=== PATIENT | male | born 1975 | race Caucasian/White ===

== ENCOUNTER 2023-07-27 18:26 | Emergency (ER) | payer OTHER, SELFPAY ==
[2023-07-27 18:27] VITALS: BP 154/90; PULSE 86; RESP 18; TEMP 36; O2SAT 100; BMI 31.9
[2023-07-27 19:41] LABS: Bacteria 0 SEEN /hpf (None Seen); Mucous, Urine 0 SEEN /hpf (<or=2+); Squamous Epithelial Cells - UA 0 SEEN /hpf (0-5)
[2023-07-27 19:42] LABS: Color, Urine Yellow (Yellow); Glucose, Dipstick Normal (Normal); Ketone-Dipstick Negative (Negative); Leukocyte Esterase-Dipstick 25 /ul (Negative); Nitrite-Dipstick Negative (Negative); Occult Blood-Urine Negative /ul (Negative); Protein-Dipstick 15 mg/dl (Negative); Specific Gravity, Urine 1.015 (1.002-1.030); Urine Bilirubin Dipstick Negative (Negative); Urine Clarity Clear (Clear); Urine Urobilinogen Normal (Normal); Urine pH 6.5 (5.0 - 8.0)
[2023-07-27 20:11] LABS: Red Blood Cells-Urine 0-5 SEEN /hpf (0-5); White Blood Cells 0-5 SEEN /hpf (0-5)
--- NOTE | 2023-07-27 20:14 | CT_ITS ---
STUDY: CT ABDOMEN AND PELVIS WITHOUT CONTRAST REASON FOR EXAM: Male, 48 years old. left flank pain RADIATION DOSAGE (If Supplied By Facility): CTDIvol = ( 13.02 ) mGy, DLP = ( 757.96 ) mGycm TECHNIQUE: Transaxial images were obtained from the dome of the diaphragm to the symphysis pubis without oral contrast, and without intravenous contrast. Sagittal and coronal images were reconstructed. Individualized dose optimization techniques were used for this CT. COMPARISON: None. FINDINGS: The visualized lung bases are unremarkable. The visualized portions of the heart are within normal limits. Normal liver. Normal gallbladder and extrahepatic biliary system. Normal spleen. Normal pancreas. Normal bilateral adrenal glands. Normal right kidney. There is mild fullness of the left renal collecting system with no significant ureteral dilatation and no stone along the trajectory of the left ureter, findings most likely secondary to a recently passed stone. Normal visualized stomach. Borderline mild thickening of the wall throughout several small bowel loops, cannot exclude mild enteritis. Normal colon. The appendix is visualized and appears normal. Normal abdominal aorta. Normal inferior vena cava. Normal retroperitoneum. Normal urinary bladder. Tiny fat-containing umbilical hernia. Multilevel endplate spondylosis with narrowing of disc height consistent with disc degenerative disease. Question varicosities along the scrotal region, cannot exclude varicocele. CT/Abdomen/Pelvis without Cont IMPRESSION: Mild fullness of the left renal collecting system with no stone along the trajectory of the left ureter and no hydroureter, findings most compatible with a recently passed stone. No acute appendicitis or bowel obstruction. Cannot exclude mild enteritis. Electronically Signed: Georgia Holman MD at 21:30 EST ,
[2023-07-27] MEDS: morphine 8 MG/ML Syringe 6 MG IV (20:27)
[2023-07-27] MEDS: Ondansetron 4 MG/2 ML Vial IV (20:28)
[2023-07-27 20:40] LABS: Absolute Lymphocyte Count 1.53 X10^3/uL (0.83-4.51); Absolute Neutrophil Count 4.6 X10^3/uL (2.0-7.7); Basophil# 0.04 X10^3/uL; Basophil% 0.6 % (0-1); Eosinophil# 0.08 X10^3/uL; Eosinophils% 1.2 % (0-5); Hematocrit 44.8 % (40-54); Hemoglobin 15.7 g/dL (13.0-16.5); Lymphocyte # 1.53 X10^3/ul (0.83-4.51); Lymphocyte % 22.5 % (19-41); Mean Corpuscular Hgb 29.6 pg (27.0-32.0); Mean Corpuscular Volume 84.5 fL (80-94); Mean Platelet Vol. 8.3 fl (6.2-12.0); Monocyte# 0.52 X10^3/uL; Monocyte% 7.6 % (0-10); NRBC Flagged by Analyzer 0 % (0-5); Neutrophil # 4.61 X10^3/uL (2.7-7.7); Neutrophil % 67.8 % (47-70); Platelet Count 246 K/mm3 (150-450); RBC Distribution Width CV 11.9 % (11.6-14.6); RBC Distribution Width SD 36.2 fl (35.1-43.9); White Blood Count 6.8 K/mm3 (4.4-11.0)
[2023-07-27 20:56] LABS: Anion Gap 4 (5-15); BUN 14 mg/dL (7-18); BUN/Creat Ratio 9.9 RATIO (10-20); Calcium,Total 8.6 mg/dL (8.5-10.1); Chloride 104 mmol/L (98-107); Creatinine, Serum 1.41 mg/dL (0.70-1.30); EST Glomerular Filtration Rate 57 mL/min (>60); Est Glom Filt Rate - Afr Amer 69 mL/min (>60); Estimated Creatinine Clearance 73.19 ml/min; Glucose 112 mg/dL (74-106); Potassium 4.1 mmol/L (3.5-5.1); Sodium Level 138 mmol/L (136-145)
[2023-07-27] MEDS: 0.9% Normal Saline (1000mL) 1,000 ML 100 ML IV (22:38)
[2023-07-27] MEDS: diazePAM 5 MG Tablet PO (22:38)
--- NOTE | 2023-07-27 23:38 | ED.VIS.BACK ---
HPI History of Present Illness Chief Complaint: Flank Pain Informant: patient Narrative Narrative: Patient is a 48-year-old male with no significant past medical history however he does not follow with a family care doctor, presenting for worsening left lower back pain. Patient states that yesterday he was stated about a flutter to up on a ladder when he fell off of it. He landed on his left side. This was in the afternoon. Around midnight (he was at work as he works third shift) he noticed her to get worsening pain in his left flank area. 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 He could not get comfortable. He took Advil around noon and the pain slowly worsens. He states the pain is constant but fluctuates in intensity. Has some mild radiation around to his left lower abdomen but is mostly in his left flank/back area. Denies any urinary symptoms or bowel symptoms. Denies any numbness or tingling. Denies any has had any loss of conscious. No other complaints at this time. Does not take any blood thinners. PFSH PFSH Home Medications diazepam 5 mg tablet (Valium) 5 mg PO TID PRN muscle spasm #15 tabs 07/27/23 [Rx Last Taken Unknown] Allergy/AdvReac Type Severity Reaction Status Date / Time No Known Allergies Allergy Verified 07/27/23 18:29 Social History Smoking Status: Never smoker ROS ROS ED Constitutional Constitutional ED: Denies chills or fever(s) Eyes Eyes: Denies change in vision Cardiovascular Cardiovascular: Denies chest pain Respiratory/Chest Respiratory/Chest: Denies dyspnea Gastrointestinal Gastrointestinal: Reports abdominal pain and nausea; Denies constipation, diarrhea or vomiting Genitourinary Genitourinary ED: Denies dysuria or hematuria Musculoskeletal Musculoskeletal: Reports back pain and myalgias; Denies arthralgias or neck pain Integumentary Denies rash Neurologic Neurologic: Denies headache(s), paresthesias or weakness Psychiatric Psychiatric: Denies anxiety or depression Hematologic/Lymphatic Hematologic/Lymphatic: Denies easy bleeding or easy bruising EXAM Physical Exam Const Vital Signs: 07/27/23 18:27 Temperature 96.8 F L Temperature Source Temporal Pulse Rate 86 Respiratory Rate 18 Blood Pressure 154/90 H Blood Pressure Mean 111 Pulse Ox 100 Oxygen Delivery Method Room Air Positive well nourished and well developed Constitutional Narrative: Uncomfortable appearing General Appearance ED: well developed and NAD HEENT Reports moist mucous membranes Eyes PERRL and EOMs intact bilaterally Neck supple Resp normal respiratory effort and clear to auscultation bilaterally Cardio regular rate and regular rhythm GI normal to inspection, nondistended, normoactive bowel sounds, soft to palpation and non-tender Back/Spine Back/Spine Narrative: No midline tenderness. Mild left paraspinal tenderness to palpation. No significant CVA tenderness however the pain is not easily reproduced with palpation. Cervical Spine: Negative for cervical spine tenderness Extremity normal to inspection General Extremety ED: Negative for edema General Extremity: Negative for edema Neuro oriented x3 and no sensory deficits noted Sensorium / Orientation: alert Motor Exam: strength 5/5 throughout Psych mental status grossly normal Skin no rashes or lesions noted and no wounds MDM MDM MDM Narrative Medical decision making narrative: Patient is evaluated for low back pain after falling off a ladder. He is quite uncomfortable. Vital signs significant for mild hypertension of 154/90. Urinalysis obtained shows 0-5 red blood cells as well as 0-5 white blood cells. Patient is given IV morphine and Zofran for symptom control initially in the ER. He does not have improvement of his pain with the morphine. He states he did not like the way it made him feel either. Differential includes muscle skeletal pain, renal colic, traumatic injury such as splenic laceration or renal laceration. Low suspicion for any spinal injury as he does not have midline tenderness. Patient is then given oral Valium and IV fluids as his creatinine is 1.41. I do not have a baseline to compare to so not sure if this is his baseline or acute. He notes he has not really had much to drink today. CT flank study noncontrast does not show any acute traumatic injury however there is noted mild fullness of the left renal collecting system with no strong findings most compatible with a recently passed stone. Patient is still in more pain than I would expect if he passed a stone. He is informed of these findings. On repeat evaluation he is resting more comfortably. His pain worsened when he used ice on his back. This is more suggestive of a muscle spasm associated with his fall. Patient will be prescribed a course of Valium and given a Lidoderm patch prior to discharge. Counseled on need for outpatient follow-up. He verbalizes understanding of this. Given a work note for the next 2 days as well. Discussed using heat, gentle stretching and taking it easy. Discharged home in stable condition. Lab Data Attestation: I reviewed the patient's lab results. Labs: Laboratory Results - last 24 hr 07/27/23 07/27/23 19:38 20:29 WBC 6.8 RBC 5.30 Hgb 15.7 Hct 44.8 MCV 84.5 MCH 29.6 MCHC 35.0 RDW Std Deviation 36.2 RDW Coeff of Cinthia 11.9 Plt Count 246 MPV 8.3 Immature Gran % (Auto) 0.300 Neut % (Auto) 67.8 Lymph % (Auto) 22.5 Giles % (Auto) 7.6 Eos % (Auto) 1.2 Baso % (Auto) 0.6 Absolute Neuts (auto) 4.6 Absolute Lymphs (auto) 1.53 Nucleated RBC % 0 Sodium 138 Potassium 4.1 Chloride 104 Carbon Dioxide 30.0 Anion Gap 4 L BUN 14 Creatinine 1.41 H Estim Creat Clear Calc 73.19 Est GFR (MDRD) Af Amer 69 Est GFR (MDRD) Non-Af 57 L BUN/Creatinine Ratio 9.9 L Glucose 112 H Calcium 8.6 Urine Color Yellow Urine Clarity Clear Urine pH 6.5 Ur Specific Goodwin 1.015 Urine Protein 15 H Urine Glucose (UA) Normal Urine Ketones Negative Urine Occult Blood Negative Urine Nitrite Negative Urine Bilirubin Negative Urine Urobilinogen Normal Ur Leukocyte Esterase 25 H Urine RBC 0-5 SEEN Urine WBC 0-5 SEEN Ur Squamous Epith Cells 0 SEEN Urine Bacteria 0 SEEN Urine Mucus 0 SEEN Radiography Diagnostic Testing: Clinical Impression(s) from Imaging Studies Abdomen/Pelvis CT 07/27/23 20:14 IMPRESSION: Mild fullness of the left renal collecting system with no stone along the trajectory of the left ureter and no hydroureter, findings most compatible with a recently passed stone. No acute appendicitis or bowel obstruction. Cannot exclude mild enteritis. Electronically Signed: Georgia Holman MD at 21:30 EST , Discharge Plan Triage Chief Complaint: Flank Pain Other Complaint: Back ED Provider: Sherita Wilson Dx/Rx/DC Orders Clinical Impression: Pain in left lumbar region of back, Elevated serum creatinine Instructions: ED Back Sprain/Strain Prescriptions: New diazepam [Valium] 5 mg tablet 5 mg PO TID PRN (Reason: muscle spasm) Qty: 15 0RF Primary Care Provider: Care Physician,No Primary Referrals: Sylvia Valentine MD [Med Staff - Back End Architect] - As soon as possible Care Physician,No Primary [Primary Care Provider] - Activity Restrictions/Additional Instructions: Your imaging work did not show any signs of major trauma. Your kidney function was mildly elevated with a creatinine of 1.41. This is to be followed up. He also had some mild nonspecific dilation of the left collecting system for your kidney. Again this is be followed up outpatient. Please follow-up with the family doctor for this. Try to avoid anti-inflammatory such as ibuprofen and Aleve. Take Tylenol as needed. Use heating pads, [id number] Lidoderm patches (4% extra strength) Disposition Disposition: Home, Self Care
[2023-07-28] MEDS: Lidocaine 5% Patch 1 PATCH TOPICAL (00:20)
[2023-07-28 00:28] VITALS: BP 149/88; PULSE 89; RESP 17; O2SAT 98
== END 2023-07-28 01:07 | disposition home or self-care (01) ==
PROVIDERS: Emergency Provider Emergency Medicine; Visit Provider Emergency Medicine
DX: M54.50 Low back pain, unspecified (principal); R10.9 Unspecified abdominal pain; R79.89 Other specified abnormal findings of blood chemistry; I10 Essential (primary) hypertension
CPT/HCPCS: 74176; 80048; 81001; 85025; 96361; 96374; 96375; 99284; J7030; A4216; J2405

== ENCOUNTER → 2023-08-11 | Outpatient (CLI) | payer OTHER, SELFPAY ==
--- NOTE | 2023-08-11 11:56 | MRI_ITS ---
EXAM: MR LUMBAR SPINE WITHOUT INTRAVENOUS CONTRAST CLINICAL INDICATION: pain, LT LEG RADICULOPATHY, FELL X2WKS AGO CT DONE THROUGH ER PLEASE COMPARE TECHNIQUE: Multiplanar and multisequence MR images of the lumbar spine without intravenous contrast. COMPARISON: No relevant prior studies available. FINDINGS: VERTEBRAE: Mild multilevel endplate deformities of the vertebral bodies without significant loss of vertebral body height. Partial loss of lumbar lordosis. No bone marrow edema. SPINAL CORD: Normal conus medullaris and cauda equina. SOFT TISSUES: Normal. DISCS/SPINAL CANAL/NEURAL FORAMINA: L1-L2: Moderate disc space narrowing left central disc protrusion and ligamentous hypertrophy without significant compression of the thecal sac mild narrowing of the left neural foramen. L2-L3: Moderate disc space narrowing right central disc protrusion and ligamentous hypertrophy causes minimal impression on the thecal sac mild narrowing of the right neural foramen. L3-L4: Moderate disc space narrowing right posterior lateral disc protrusion and ligamentous hypertrophy results in mild spinal stenosis and mild to moderate narrowing of the right neural foramen. L4-L5: Mild disc space narrowing mild disc bulging, ligamentous hypertrophy and facet arthropathy results in moderate narrowing of the neural foramina but no significant spinal compression. L5-S1: Moderate disc space narrowing with Modic type II endplate changes mild retrolisthesis of L5 on S1 without impingement on the spinal canal. Moderate left and mild right neural foraminal narrowing related to facet arthropathy and vertebral body hypertrophy. MRI/Spine Lumbar (Routine) IMPRESSION: Multilevel disc degeneration without significant spinal stenosis. Neural foraminal stenoses as described. Electronically Signed: Vinnie Bernstein MD at 12:41 EST ,
--- NOTE | 2023-08-11 12:00 | RAD_ITS ---
STUDY: X-RAY - ORBITS REASON FOR EXAM: Male, 48 years old. History of metal in eye. Evaluate for MRI study. TECHNIQUE: 2 frontal view(s) of the orbits were obtained. COMPARISON: None. FINDINGS: Normal bilateral orbits without a metallic orbital foreign body. Normal visualized facial bones. Normal paranasal sinuses. The soft tissue structures are unremarkable. RAD/Orbits for Foreign Body IMPRESSION: No demonstrated metallic orbital foreign body. The patient is cleared for an MRI examination. Electronically Signed: Patrice Merida MD at 12:40 EST ,
== END | disposition home or self-care (01) ==
PROVIDERS: Referring Provider Orthopaedic Surgery; Visit Provider Orthopaedic Surgery
DX: M51.26 Other intervertebral disc displacement, lumbar region (principal); M53.3 Sacrococcygeal disorders, not elsewhere classified
CPT/HCPCS: 70030; 72148

== ENCOUNTER → 2023-08-17 | Outpatient (CLI) | payer OTHER, SELFPAY | END | disposition home or self-care (01) | LOC: LABSPEC 15:36 | PROVIDERS: Referring Provider Surgery; Visit Provider Surgery | DX: K46.9 Unspecified abdominal hernia without obstruction or gangrene (principal) | CPT/HCPCS: 87081 ==

== ENCOUNTER 2023-10-25 08:55 | Day surgery (SDC) | payer OTHER, SELFPAY ==
[2023-10-25] VITALS (7 sets, daily range): BP systolic 125–160; BP diastolic 66–104; PULSE 63–72; RESP 12–20; TEMP 36.3–36.7; O2SAT 96–100; BMI 31.1
[2023-10-25] MEDS: Lactated Ringers 1,000 ML 15 ML IV (09:26)
--- NOTE | 2023-10-25 10:45 | PCM.HP.BLA ---
History and Physical Date of Admission: 10/25/23 Date of Service: 10/08/23 MR#: [id number] Acct: [id number] Name: JEANNIE CALLE Rep #: [id number] : 1975 Provider: Dr. Venancio Nieves MD Age/Sex: 48/M Location: [facility] Status: Signed Intake Vital Signs 08/17/2310:33 10/08/2407:52 Height 6 ft 1 in 6 ft 1 in Weight: 223 lb 231 lb 8 oz BMI 29.4 30.5 BP 128/91 H 146/86 H Blood Pressure Location Rt brachial Rt brachial Position Sitting Sitting Respiration 17 17 Pulse 86 90 Pulse Source Monitor Monitor Temp 97.3 F L 97.9 F Temp Source Temporal Temporal Pulse Oximetry (%) 99 97 Oxygen Delivery Method room air room air Intake Visit Reasons: UPDATE H&P Chief Complaint: update H&P Facial Operator Required: No Is patient in pain?: No Allergies No Known Allergies Allergy (Verified 10/08/23 08:53) Medications diazepam 5 mg tablet (Valium) 5 mg PO TID PRN muscle spasm #15 tabs 07/27/23 [Rx Confirmed 10/08/23] PFSH Social History (Updated 10/08/23 @ 08:52 by Corina Casanova LPN) Smoking Status: Never smoker alcohol intake: current alcohol intake frequency: holidays/special occasions only substance use type: does not use HPI HPI HPI: Patient returns for discussions around left inguinal hernia and repair of incidental discovery on umbilical hernia. His last visit was 08/17/2023. He states since that time he has been good . He goes beyond this to state that his hernia issues have been pretty quiet . He notes some periodic numbness of his leg down to the knee to which I have shared I am not certain this is related to his hernia and he quickly acknowledges that he has been told his back is in pretty rough shape. He shares that he has received appropriate clearance through his employer at [employer] for a postoperative recovery. Below is recapitulated from patient's prior visit for ease of review: Patient is a 48-year-old male who presents for complaint of new left lower quadrant abdominal pain. He is referred from Dr. Elijah Gamez of orthopedic surgery. This finding was first noticed by patient after he fell off of a ladder on 07/26/2023. He states that he was immediately taken to the emergency department where he was evaluated with CT imaging that primarily involved evaluation of his back as this was the area of greatest symptomatic difficulty, initially. However, in the time since his initial injury the back pain has subsided but he has experienced persistent discomfort in the left groin. He describes this pain as radiating through to his back as well as presenting with some associated left leg skin pain . He suggest that overall his symptoms have gotten better but he still must walk around stiffly. He has noticed an associated bulge on the left side?particularly immediately after his injury. His adds at this time that Mr. Sanchez was constipated for 6 days after his injury and this may have factored into the bulging. Mr. Sanchez confirms that his bowel movements are now normal. He denies any prior issues at this site. 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 Despite this activity he declares that lifting does not seem to exacerbate the situation (but shares that when he lies on his stomach this does make things worse). Patient has a remote personal history of smoking (last smoking was over 30 years ago). Patient has no personal history of recurrent cutaneous infections including staph. Pertinent surgical history includes: None ROS General General: No weight change, appetite, fatigue, colon cancer, breast cancer or weakness HEENT HEENT: No difficulty swallowing, eye injury, eye surgery, swollen glands or hoarseness Endo Endocrine: No thyroid disease, diabetes mellitus, thyroid cancer, Hair loss, heat intolerance or cold intolerance Skin Skin: No rash or changing moles Musc Musculoskeletal: Yes back problems and arthritis; No rheumatoid arthritis, gout or joint pain Cardio Cardiovascular: No murmur, pacemaker, heart disease, atrial fibrillation, high blood pressure, heart attack, heart stent, palpitations, shortness of breat with exertion or chest pain Psych Psychiatric: No depression, anxiety or hearing voices Resp Respiratory: No shortness of breath, No sleep apnea, No cough, No COPD, No asthma, No emphysema and No wheezing Gastro Gastrointestinal: Yes abdominal pain, No nausea or vomiting, No diarrhea, No constipation, No blood in stool, No acid reflux, No hemorrhoids, No ulcers, No gallbladder problem and No black,tarry stools Kuldip Hematologic: No blood thinners, No blood disorders, No bleeding, No anemia and No blood clots Neuro Neurologic: No system reviewed and no additional complaints, except as documented, No as per HPI, No abnormal gait, No abnormal hearing, No abnormal movements, No abnormal speech, No behavioral changes, No burning sensations, No confusion, No convulsions, No disequilibrium, No dizziness, No localized weakness, No frequent falls, No headache(s), No lack of coordination, No loss of vision, No memory loss, No numbness, No other visual disturbances, No radicular pain, No restless legs, No sensory deficit, No syncope, No tingling, No tremor(s), No weakness and No other Exam Const General: cooperative, healthy appearing and comfortable Orientation: alert, awake and oriented x3 Resp Effort & Inspection: normal respiratory effort Other: Persistent tenderness of the left groin with slight bulge Assessment and Plan Assessment and Plan (1) Left lower quadrant abdominal pain: Status: Acute Comment: Believed to be related to small indirect inguinal hernia (further described below) (2) Left inguinal hernia: Status: Acute Comment: This is a 48-year-old male who presents 1 month out from fall from a ladder which she describes as an inciting event for some left lower quadrant/left groin pain. He is sent for evaluation of possible inguinal hernia, and indeed on exam I palpate what seems to be an indirect inguinal hernia defect. This is small in size but does reproduce patient's discomfort. I have discussed operative repair based on patient's discomfort, but at present I do not believe he is at a significant risk for bowel entrapment. I do believe that at minimum he has a cord lipoma and there does appear to be some irritation of the genitofemoral nerve per his history of skin irritation . This seems evident from independent review of patient's CT imaging from 07/27/2023 and I reviewed this imaging with patient and his spouse during today's consultation. Both open and minimally invasive approaches were discussed, but I recommended ultimately that we consider a minimally invasive approach for the shorter return to activity given patient's active lifestyle. Unfortunately there is some limited operating room availability and patient wishes to return to work before he goes through with the surgery. In this interim time I have recommended he consider a hernia truss belt and he is receptive of this recommendation so a prescription will be written. In the meantime I clarified red flag warning signs that should move him to present for emergent evaluation. Patient and his spouse both expressed understanding of this information. Patient returns today stating that he has had minimal additional discomfort and has secured arrangements through his employer to go through with the surgery and abide by the activity restrictions as laid out during her last visit. I reviewed some of the details of the procedure as well as post procedure expectations. Mr. Sanchez has no further questions and his operative date has been set for 10/25/2023. MRSA nasal swab obtained at his consultation visit was negative for MRSA or Staph aureus. Plan: ? Plan for robot-assisted left inguinal hernia repair with mesh placement and concurrent open primary umbilical hernia repair (3) Umbilical hernia without obstruction and without gangrene: Status: Acute Comment: Patient with asymptomatic, 1.5 cm umbilical hernia. Discussed primary closure at the time of above surgery to hopefully mitigate patient's risk for further complications and yet take advantage of his anesthetic. Patient states that he sees the merits and this approach and wishes to proceed as described. No additional issues on repeat visit today. Patient reports that he had forgotten we are planning to address this issue concurrent with his left inguinal hernia and reiterates his agreement to proceed with an open repair given the small size of the defect. Plan: ? Plan for concurrent open, primary umbilical hernia repair I have examined the patient and the H&P has been reviewed. There are no clinical changes since date of exam. Patient is quite anxious today so I take the opportunity to review operative and postoperative expectations?specifically activity restrictions and wound care. and Mrs. Sanchez expressed appreciation for this information and denied any further questions. I have discussed that I would like to place a trocar through his umbilical hernia initially and examine his pelvis to confirm whether or not an inguinal hernia exist. If none is identifiable then I would like to simply close his umbilical hernia, but if 1 is present then we will proceed with the full operation as scheduled.
[2023-10-25] MEDS: Cefazolin 2 GM in 0.9% Normal Saline (100mL Bag) 100 ML IV (11:07)
[2023-10-25] MEDS: Bupivacaine Mpf 0.5% 30 ML VIAL (13:26)
--- NOTE | 2023-10-25 13:34 | OP.PCM_ITS ---
Report of Operation Date of Procedure: 10/25/23 Pre-Operative Diagnosis: 1. Umbilical hernia 2. Left inguinal hernia Post-Operative Diagnosis: 1. Umbilical hernia 2. Left fat?containing direct inguinal hernia Surgery/Procedure Performed:: 1. Open umbilical primary hernia repair 2. Left robot-assisted inguinal hernia repair via transabdominal preperitoneal approach Description of Surgical Findings:: ? 1.5 cm umbilical hernia containing fat ? Small direct inguinal hernia defect containing fat with adipose?rich left spermatic cord Surgeon: Venancio Nieves sales enablement consultant: Mo Lott sales enablement consultant: Kwadwo Delgadillo Type of Anesthesia: General/Supplemental Anesthesiologist: Felix Whitfield Specimen's removed: NA Estimated Blood Loss (mL): 15 Description of Procedure: After appropriate identification in the preoperative holding area the patient was brought to the operating room where [he/she] was positioned supine on the operating table. Preoperative antibiotics were completed and the patient was administered a general anesthetic. Patient's abdomen was then prepped and draped in usual sterile fashion. Formal timeout followed to confirm patient and procedure. Procedure was begun with an optical entry facilitated by Veress insufflation at Caldwell's point. Once pneumoperitoneum reached a set point pressure of [12/15] mmHg a [right/left] paramedian incision was made and a 8 mm robotic trocar was placed with a careful Optiview technique. Follow-up laparoscopic investigation revealed no inadvertent injury to the viscera below. A second port was placed a hand's breath right of this index port under laparos copic visualization. Then the Veress needle was withdrawn and a third and final robotic port was placed through this site. Patient was positioned in slight Trendelenburg and I performed a local block of the ilioinguinal nerve[s] using [volume]mL local anesthetic under laparoscopic visualizaiton. The robot was docked in standard fashion. In this positioning I could visualize a [direct, indirect, femoral] abdominal wall defect. Robotically, a peritoneal flap was created on the [right/left] extending from the medial umbilical ligament to the level of the ASIS (external) and was bluntly dissected to expose the medial parietal compartment and lateral visceral compartments. Medially I could visualize the pubic tubercle and Maury's ligament while laterally I extended the dissection down to the level of the ASIS. The hernia sac was identified and from the cord structures deeply with selective use of monopolar energy. A [small/med/large] cord lipoma was identified and removed with monopolar energy. Beyond this, I [visualized/did not visualize] a [direct/indirect/femoral/obturator] defect. The peritoneal flap was inspected to ensure that cord was appropriately parietalized and there was no pulling of the cord structures or the viscera deeply over the psoas using the pull test. Then attention was turned to the patient's [right/left] side where there was evidence of [findings]. Again, a peritoneal flap was created on this side and dissection was carried down in similar fashion to Maury's ligament medially and laterally over the psoas at the same depth. Here there was and obvious [direct/indirect/obturator/femoral] defect. Manual traction was applied to the hernia sac and selective electrocautery was used to separate it from the cord structures inferiorly. Ultimately, I was able to visualize complete reduction of the hernia sac and again performed the pull test to ensure that there is no tenting of structures that may compromise the future mesh lie. Once satisfied, a Bard 3D max, size large, [heavy weight/mid weight] mesh was placed into the abdomen along with suture. It was positioned within the preperitoneal pocket so that there was good medial and inferior overlap. It was then tacked to theadminiculum of the linea alba just superior to the pubic tubercle and laterally in a partial-thickness bite of the abdominal wall using a 3-0 [Ethibon d/Vicryl] suture. The peritoneal flap was then closed with a running 3-0 V-Loc suture taking care to conceal the barbs of the suture beneath the peritoneum. As this closure proceeded, I hung the hernia sac vertically in front of several inadvertent peritoneal rents. Once the flap closure was complete, I undertook repair of peritoneal defects with 3-0 Vicryl. I then transitioned to the [right/left] side and obtained a second large, [heavyweight/mid weight] 3D max mesh. Mesh was positioned into the preperitoneal space and tacked in similar fashion has not been done on the left side using 3-0 [Ethibond/Vicryl]. There were several peritoneal defects here as well that also required closure with Vicryl. During the flap closure I did note some curling of the inferior edge of the mesh and reached through one of the peritoneal defects (before closure) to flatten this out before closure completion. With the peritoneal defects closed, sutures were systematically removed from the peritoneum and the pneumoperitoneum was evacuated before removing the trocars. The port sites were closed at the skin with running 4-0 Monocryl in a subcuticular fashion. Steri- Strips and OpSite's were used as dressings. Patient's testicles were returned to the scrotum and a supportive jockstrap was fitted. Patient was then awoken from anesthetic and transferred to PACU for ongoing recovery. Grafts/Implants Used: Bard 3D max mid anatomic mesh, lot [id number], reference [id number] Complications None
--- NOTE | 2023-10-25 13:34 | PCM.OPRPT ---
Report of Operation Date of Procedure: 10/25/23 Pre-Operative Diagnosis: 1. Umbilical hernia 2. Left inguinal hernia Post-Operative Diagnosis: 1. Umbilical hernia 2. Left fat?containing direct inguinal hernia Surgery/Procedure Performed:: 1. Open umbilical primary hernia repair 2. Left robot-assisted inguinal hernia repair via transabdominal preperitoneal approach Description of Surgical Findings:: ? 1.5 cm umbilical hernia containing fat ? Small direct inguinal hernia defect containing fat with adipose?rich left spermatic cord Surgeon: Venancio Nieves medical claims manager: Mo Lott medical claims manager: Kwadwo Delgadillo Type of Anesthesia: General/Supplemental Anesthesiologist: Felix Whitfield Specimen's removed: NA Estimated Blood Loss (mL): 15 Description of Procedure: After appropriate identification in the preoperative holding area the patient was brought to the operating room where he was positioned supine on the operating table. Preoperative antibiotics were completed and the patient was administered a general anesthetic. Patient's abdomen was then prepped and draped in usual sterile fashion. Formal timeout followed to confirm patient and procedure. Procedure was begun with instillation of local anesthetic and a curvilinear infraumbilical incision made in the crease of the umbilicus. This was carried down through the dermal layer and blunt dissection was used to encircle the umbilical stalk. The overlying skin was amputated free with a combination of sharp dissection and electrocautery. With the umbilical stalk now is able to visualize a tuft of omental fat protruding through a 1.5 cm umbilical fascial defect. I briefly examined the fascial edges to confirm that there were no further adhesions that would prevent insertion of a trocar and then I placed 2-0 Ethibond sutures in a [id number] technique to close this opening but did not tie them down. A robotic trocar was placed through this opening. Pneumoperitoneum was established to 15 mmHg and I had patient repositioned in Trendelenburg to examine the pelvis. Unfortunately, patient had some adhesions of the sigmoid colon to the left pelvic sidewall precluding a clear view but there did not appear to be any obvious hernia defects apart from some epiploic fat that appeared to be adherent within Hesselbach's triangle. Desiring clearer visualization I placed a port in the right upper quadrant under laparoscopic visualization and through this port used a combination of blunt and sharp dissection to safely take down several adhesions of the colon to the sidewall to optimizes visualization. A dimpling persisted in the peritoneum in the region of Hesselbach's triangle and therefore elected to proceed with our planned left inguinal hernia repair with mesh. Pneumoperitoneum was released and the umbilical fascial closure sutures were tied down. Two additional robotic ports were placed under laparoscopic guidance in the epigastrium and left upper quadrant after instilling local anesthetic. The robot was docked in standard fashion. Robotically, a peritoneal flap was created on the left extending from the medial umbilical ligament to the level of the ASIS (external) and was bluntly dissected to expose the medial parietal compartment and lateral visceral compartments. Medially I could visualize the pubic tubercle and Maury's ligament while laterally I extended the dissection down to the level of the ASIS. A small tuft of fat was found and a direct hernia defect but there did not appear to be a indirect hernia. Patient also exhibited evidence of a fatty spermatic cord with a small adherent cord lipoma that was removed from the canal but left intact. Beyond this, I did not visualize a femoral or obturator defect. The peritoneal flap was inspected to ensure that cord was appropriately skeletonized and there was no pulling of the cord structures or the viscera deeply over the psoas using the pull test. Once satisfied, a Bard 3D max, size large, mid weight mesh was placed into the abdomen along with suture. It was positioned within the preperitoneal pocket so that there was good medial and inferior overlap. It was then tacked to the admuniculum of the linea alba just superior to the pubic tubercle and laterally in a partial-thickness bite of the abdominal wall using a 3-0 Vicryl suture. The peritoneal flap was then closed with a running 3-0 V-Loc suture taking care to conceal the barbs of the suture beneath the peritoneum. Once the flap closure was complete, I undertook repair of peritoneal defects with 3-0 Vicryl. With the peritoneal defects closed, sutures were systematically removed from the peritoneum and the pneumoperitoneum was evacuated before removing the trocars. The port sites were closed at the skin with running 4-0 Monocryl in a subcuticular fashion. Steri-Strips and OpSite's were used as dressings. Patient's scrotum appeared insufflated but testicles were confirmed within the scrotum. Patient was then awoken from anesthetic and transferred to PACU for ongoing recovery. Grafts/Implants Used: Bard 3D max mid anatomic mesh, lot [id number], reference [id number] Complications None
--- NOTE | 2023-10-25 13:40 | DCINST_ITS ---
Discharge Instructions Diet Discharge Diet: No restrictions Activity Discharge Activity: May Not Drive (While taking narcotic pain medication) and May Shower May shower in (days): 2 Ice area for (Minutes): 20 Lifting Restrictions: No lifting greater than 10 pounds for the next 5 weeks Dressing / Incision Call your doctor if your incision/area has: Continuous Slow Oozing, Increased Pain/ Swelling, Increased Redness, Foul Smelling Discharge and Swelling at the incision site Call your doctor if you observe: Fever of 101 or Higher, Inability to urinate and Inability to have a bowel movement Change Dressing in: 2 days (Please leave Steri-Strips intact until they fall off spontaneously or are taken off at your follow-up visit) Remove Dressing in: Umb 5 days Cleanse incision/area with: Soap & Water and Keep Dressing Clean & Dry Follow Up Care Please Follow Up With: Venancio Nieves MD When: 1 week postop Test Results: Test results from this visit will be discussed in further detail at your follow- up appointment, if applicable. Discharge Plan Admission Primary Reason for Your Visit: Repair of groin and bellybutton hernias Attending Provider: Venancio Nieves Primary Care Provider: Care Physician,Janina Primary Discharge Orders/Prescriptions Prescriptions: New oxycodone 5 mg tablet 5 mg PO Q6H PRN (Reason: pain) 3 Days Qty: 10 0RF Referrals / Follow Up: Care PhysicianJanina Primary [Primary Care Provider] - Disposition Disposition (needs filled in before D/C Order can be placed): Home, Self Care
[2023-10-25] MEDS: Lorazepam 2 MG/ML WCH Syringe 0.5 MG IV (14:26)
== END 2023-10-25 17:16 | disposition home or self-care (01) ==
LOC: SDC 08:56 → AC 08:56
PROVIDERS: Referring Provider Surgery; Visit Provider Surgery
PROC: 0YQ64ZZ Repair Left Inguinal Region, Percutaneous Endoscopic Approach (ICD-10-PCS; CPT 49591; principal; 2023-10-25 10:15)
DX: K40.90 Unilateral inguinal hernia, without obstruction or gangrene, not specified as recurrent (principal); Z87.891 Personal history of nicotine dependence; K42.9 Umbilical hernia without obstruction or gangrene; M79.605 Pain in left leg; D17.6 Benign lipomatous neoplasm of spermatic cord
CPT/HCPCS: 49591; S2900; 00830; 49650; 93005; J7120; J2405